=== PATIENT | female | born 1980 | race Caucasian/White ===

== ENCOUNTER 2021-09-21 09:24 | Inpatient (IN) ==
[2021-09-21 10:56] LABS: Basophils % 0.4 % (0.0-0.8); Eosinophils # 0.1 10*3/uL (0.0-0.87); Eosinophils % 1.4 % (0.00-10.9); Hematocrit 38.8 VOL% (35.7-47.0); Hemoglobin 12.3 GM/DL (12.0-16.0); Lymphocytes # 1.9 10*3/uL (1.4-4.0); Lymphocytes % 20.3 % (21.3-54.2); Mean Corpuscular HGB Conc 31.7 GM/DL (32-36); Mean Platelet Volume 9.9 FL (9.6-12.0); Monocytes % 8.9 % (1.7-12.7); Neutrophils % 68.6 % (38.7-73.9); Platelet Count 234 T/CUMM (130-400); Red Blood Count 4.46 MC/CUMM (3.8-5.5); Red Cell Distribution Width 12.9 % (9.3-17.3); White Blood Count 9.4 T/CUMM (4-12)
[2021-09-21] MEDS ORDERED: VANCOMYCIN INJ 1,250 MG in SODIUM CHLORIDE 0.9% 250 ML IV STA (12:05)
[2021-09-21 12:26] LABS: Calcium 8.6 MG/DL (8.5-10.1); Osmolality,Calculated 275.5 MOS/KG (273-304); Potassium 3.5 MMOL/L (3.5-5.1)
[2021-09-21] MEDS ORDERED: VANCOMYCIN 1,000 MG VIAL ONE (12:31)
[2021-09-21] MEDS ORDERED: SODIUM CHLORIDE 0.9% 250 ML IV ONE (12:32)
[2021-09-21] MEDS ORDERED: ONDANSETRON 4 MG/2 ML VIAL IV PRN (13:50)
[2021-09-21] MEDS ORDERED: DEXTROSE 10% 250 ML BAG IV PRN (13:50)
[2021-09-21] MEDS ORDERED: GLUCAGON 1 MG VIAL IM PRN (13:50)
[2021-09-21] MEDS ORDERED: diphenhydrAMINE 50 MG/1 ML VIAL IV STA ×2 (13:52→14:21)
[2021-09-21] MEDS ORDERED: diphenhydrAMINE 50 MG/1 ML VIAL ONE (13:52)
[2021-09-21] MEDS ORDERED: methylPREDNISolone SOD SUC 125 MG/2 ML VIAL ONE (13:52)
[2021-09-21] MEDS ORDERED: FAMOTIDINE 20 MG/2 ML VIAL IV STA (13:52)
[2021-09-21] MEDS ORDERED: methylPREDNISolone SOD SUC 125 MG/2 ML VIAL IV STA (13:52)
[2021-09-21] MEDS: PANTOPRAZOLE 40 MG TABLET PO SCH (14:56)
[2021-09-21] MEDS ORDERED: busPIRone 15 MG TABLET PO SCH (21:00)
[2021-09-21] MEDS: ZALEPLON 5 MG CAPSULE PO SCH (21:34)
[2021-09-21] MEDS: LINEZOLID INJ 600 MG/300 ML PREMIX IV SCH (22:36)
[2021-09-22 03:05] LABS: Basophils % 0.2 % (0.0-0.8); Hematocrit 33.3 VOL% (35.7-47.0); Hemoglobin 10.9 GM/DL (12.0-16.0); Immature Granulocytes % 0.5 %; Immature Granulocytes Absolute 0.06 #; Lymphocytes # 1.1 10*3/uL (1.4-4.0); Lymphocytes % 8.9 % (21.3-54.2); Mean Corpuscular HGB Conc 32.7 GM/DL (32-36); Mean Platelet Volume 10.2 FL (9.6-12.0); Monocytes % 6.4 % (1.7-12.7); Platelet Count 207 T/CUMM (130-400); Red Blood Count 3.87 MC/CUMM (3.8-5.5); Red Cell Distribution Width 12.8 % (9.3-17.3)
[2021-09-22 03:38] LABS: Calcium 8.6 MG/DL (8.5-10.1); Osmolality,Calculated 272.8 MOS/KG (273-304); Potassium 3.7 MMOL/L (3.5-5.1)
[2021-09-22] MEDS ORDERED: buPROPion SR 150 MG TABLET PO SCH (09:00)
[2021-09-22] MEDS: LOSARTAN 25 MG TABLET PO SCH (09:18)
[2021-09-22] MEDS: PANTOPRAZOLE 40 MG TABLET PO SCH (09:18)
[2021-09-22] MEDS: MULTIVITAMIN (CENTRUM) TABLET PO SCH (09:18)
[2021-09-22] MEDS: LINEZOLID INJ 600 MG/300 ML PREMIX IV SCH ×2 (10:16→10:20)
[2021-09-22] MEDS: cefTRIAXone 1,000 MG in SODIUM CHLORIDE 0.9% 100 ML IV SCH (17:28)
[2021-09-22] MEDS: CLINDAMYCIN INJ 900 MG/50 ML PREMIX IV SCH ×2 (18:05→20:44)
[2021-09-22] MEDS: ZALEPLON 5 MG CAPSULE PO SCH (20:44)
[2021-09-23] MEDS: CLINDAMYCIN INJ 900 MG/50 ML PREMIX IV SCH ×3 (04:40→20:41)
[2021-09-23 06:29] LABS: Basophils # 0.1 10*3/uL (0.0-0.2); Basophils % 0.5 % (0.0-0.8); Eosinophils # 0.1 10*3/uL (0.0-0.87); Eosinophils % 0.9 % (0.00-10.9); Hematocrit 33.7 VOL% (35.7-47.0); Hemoglobin 11.3 GM/DL (12.0-16.0); Immature Granulocytes % 0.3 %; Immature Granulocytes Absolute 0.03 #; Lymphocytes # 3.4 10*3/uL (1.4-4.0); Lymphocytes % 35.9 % (21.3-54.2); Mean Corpuscular HGB Conc 33.5 GM/DL (32-36); Mean Corpuscular Volume 85.3 FL (87-102); Mean Platelet Volume 10.9 FL (9.6-12.0); Monocytes % 7.8 % (1.7-12.7); Neutrophils % 54.6 % (38.7-73.9); Platelet Count 235 T/CUMM (130-400); Red Blood Count 3.95 MC/CUMM (3.8-5.5); Red Cell Distribution Width 12.8 % (9.3-17.3); White Blood Count 9.6 T/CUMM (4-12)
[2021-09-23 06:48] LABS: Calcium 8.1 MG/DL (8.5-10.1); Osmolality,Calculated 274.5 MOS/KG (273-304); Potassium 3.5 MMOL/L (3.5-5.1)
[2021-09-23] MEDS ORDERED: MORPHINE 2 MG/1 ML SYRINGE IV PRN (10:43)
[2021-09-23] MEDS: PANTOPRAZOLE 40 MG TABLET PO SCH (11:01)
[2021-09-23] MEDS: MULTIVITAMIN (CENTRUM) TABLET PO SCH (11:01)
[2021-09-23] MEDS: cefTRIAXone 1,000 MG in SODIUM CHLORIDE 0.9% 100 ML IV SCH (11:16)
[2021-09-23] MEDS: LOSARTAN 25 MG TABLET PO SCH (11:30)
[2021-09-23] MEDS ORDERED: BALANCED SALT IRRIG SOLN 15 ML BOTTLE ONE (11:47)
[2021-09-23] MEDS ORDERED: LIDOCAINE 2% 20 ML VIAL ONE (11:47)
[2021-09-23] MEDS ORDERED: TETRACAINE 0.5% OPH SOLN 4 ML BOTTLE ONE (11:47)
[2021-09-23] MEDS ORDERED: fentaNYL 100 MCG/2 ML VIAL ONE (13:17)
[2021-09-23] MEDS ORDERED: MIDAZOLAM 2 MG/2 ML VIAL ONE (13:17)
[2021-09-23] MEDS ORDERED: LACTATED RINGERS 1,000 ML IV SCH (13:30)
[2021-09-23] MEDS ORDERED: ERYTHROMYCIN 0.5% OPHT OINT 1 GM TUBE ONE (13:47)
[2021-09-23] MEDS ORDERED: propofoL 200 MG/20 ML VIAL IV ONE (13:53)
[2021-09-23] MEDS ORDERED: SEVOFLURANE 1 UNIT/15 MINUTE INH ONE (13:53)
[2021-09-23] MEDS ORDERED: ONDANSETRON 4 MG/2 ML VIAL ONE (13:53)
[2021-09-23] MEDS ORDERED: LIDOCAINE 2% 5 ML VIAL ONE (13:53)
[2021-09-23] MEDS ORDERED: HYDROmorphone 2 MG/1 ML VIAL ONE (14:10)
[2021-09-23] MEDS: HYDROmorphone 2 MG/1 ML VIAL IV PRN ×2 (14:10→14:25)
[2021-09-23] MEDS ORDERED: ONDANSETRON 4 MG/2 ML VIAL IV PRN (14:20)
[2021-09-23] MEDS ORDERED: PROMETHAZINE 25 MG/1 ML VIAL IM PRN (19:26)
[2021-09-23] MEDS: ZALEPLON 5 MG CAPSULE PO SCH (20:44)
[2021-09-24 04:20] LABS: Basophils # 0.1 10*3/uL (0.0-0.2); Basophils % 0.6 % (0.0-0.8); Eosinophils # 0.2 10*3/uL (0.0-0.87); Eosinophils % 1.8 % (0.00-10.9); Hematocrit 34.8 VOL% (35.7-47.0); Hemoglobin 11.3 GM/DL (12.0-16.0); Immature Granulocytes % 0.5 %; Immature Granulocytes Absolute 0.04 #; Lymphocytes # 1.9 10*3/uL (1.4-4.0); Lymphocytes % 23.3 % (21.3-54.2); Mean Corpuscular HGB Conc 32.5 GM/DL (32-36); Mean Corpuscular Volume 86.4 FL (87-102); Mean Platelet Volume 9.8 FL (9.6-12.0); Monocytes % 7.3 % (1.7-12.7); Neutrophils % 66.5 % (38.7-73.9); Platelet Count 222 T/CUMM (130-400); Red Blood Count 4.03 MC/CUMM (3.8-5.5); Red Cell Distribution Width 12.8 % (9.3-17.3); White Blood Count 8.3 T/CUMM (4-12)
[2021-09-24 04:39] LABS: Calcium 8.5 MG/DL (8.5-10.1); Osmolality,Calculated 270.8 MOS/KG (273-304); Potassium 4.2 MMOL/L (3.5-5.1)
[2021-09-24] MEDS: CLINDAMYCIN INJ 900 MG/50 ML PREMIX IV SCH ×2 (04:59→12:36)
[2021-09-24] MEDS ORDERED: busPIRone 15 MG TABLET PO SCH (08:00)
[2021-09-24] MEDS: LOSARTAN 25 MG TABLET PO SCH (08:45)
[2021-09-24] MEDS: MULTIVITAMIN (CENTRUM) TABLET PO SCH (08:45)
[2021-09-24] MEDS: PANTOPRAZOLE 40 MG TABLET PO SCH (08:45)
[2021-09-24] MEDS: cefTRIAXone 1,000 MG in SODIUM CHLORIDE 0.9% 100 ML IV SCH (08:50)
[2021-09-24 12:04] VITALS: BP 120/61
== END 2021-09-24 15:38 | disposition home or self-care (01) | DRG 603 ==
LOC: N.EDINP 09:24 → N.ED 09:24 → SUATTDRO 13:50 → N.EDINP 15:11 → N.5E 15:24 → SUATTDRO 09-22 10:21
PROVIDERS: ADMIT Phlebology; ATTEND Internal Medicine